=== PATIENT | female | born 1955 | race Hispanic/Latino ===

== ENCOUNTER → 2017-02-09 | Outpatient (CLI) | payer OTHER ==
--- NOTE | 2017-02-10 09:02 | RAD ---
EXAM DESCRIPTION: Chest,2 Views CLINICAL HISTORY: DYSPHAGIA COMPARISON: None TECHNIQUE: PA/lateral FINDINGS: Heart size is upper limits of normal with normal vascularity and tortuous aortic arch and descending aorta. The left lung is essentially clear without infiltrate or effusion. On the right there are slightly coarsened perihilar and infrahilar markings in the medial lung field. Element of scarring or bronchitis or atelectasis should be considered. Dense lobar or segmental consolidation or pleural effusion is not apparent. IMPRESSION: Coarse hilar and infrahilar markings right lung suggesting an element of atelectasis or scarring or less likely minimal bronchopneumonia. Otherwise negative chest with upper normal heart size. Electronically signed by: Jesús Crawford MD 02/10/2017 9:00 AM CDT
--- NOTE | 2017-02-13 10:09 | RAD ---
EXAM DESCRIPTION: UGI: Fluoroscopy with barium. CLINICAL HISTORY: DYSPHAGIA COMPARISON: Barium swallow 02/23/2015. TECHNIQUE: The patient swallowed barium pill under fluoroscopy. Patient also swallowed Gas-producing granules, water, and heavy-density barium under fluoroscopic visualization. Patient also drank medium-density barium through a straw, prone position. The images were obtained with the patient upright and horizontal. 12 fluoroscopic images taken. Five cine loops. Permanent images of this procedure are stored in the patient's medical record. Fluoroscopy time was 2.1 minutes. Cumulative dose: 59.14 mGy. FINDINGS: Barium pill passed from the oral cavity into the stomach under fluoroscopy without delay. The swallowing mechanism of the hypopharynx and laryngeal regions is unremarkable. Normal primary peristaltic wave. Minimal to moderate gastroesophageal reflux. No gastroesophageal obstruction. No hiatal hernia. Stomach well distended with gas and contrast material and unremarkable. Duodenum are distended with gas and contrast material and unremarkable. No mass effect. IMPRESSION: 1. Moderate gastroesophageal reflux without hiatal hernia. No mucosal lesions in the esophagus or mass effect. 2. No intrinsic lesions in the stomach or duodenum. No mass effect. If dysphagia symptoms persist, consider modified barium swallow examination with speech-language pathology supervision. Electronically signed by: Rogelio Aguirre MD 02/13/2017 10:07 AM CDT
== END | disposition home or self-care (01) ==
LOC: RAD 08:26
PROVIDERS: ATTEND Otolaryngology
DX: R13.10 Dysphagia, unspecified (principal)

== ENCOUNTER → 2018-02-13 | Outpatient (CLI) | payer OTHER ==
--- NOTE | 2018-02-15 11:10 | MAM ---
EXAM DESCRIPTION: 3D Screening BILATERAL : Digital Mammography. CLINICAL HISTORY: 62 years Female SCREENING . No complaints or personal history of breast cancer. Sister with breast cancer. No childbirth. Hysterectomy 15 years ago. No HRT. Lifetime risk of developing breast cancer (Tyrer-Cuzick model)(%): 3.4. COMPARISON: Baseline study at this facility.. No prior reports available. TECHNIQUE: Bilateral CC and MLO projection full-field images, Digital tomosynthesis mammographic technique. Bilateral digital 2-D full-field MLO images. CAD not utilized. FINDINGS: The breast parenchymal density pattern is: Heterogeneously dense breast tissue, which may obscure small masses. No skin thickening or nipple retraction. Bilateral vascular calcifications, more on the right. Left axillary lymph nodes. Bilateral solitary microcalcifications. No focal, stellate mass or density, focal asymmetry , and no suspicious microcalcifications bilaterally. IMPRESSION: Benign exam. BIRAD CATEGORY: 2 BENIGN FINDINGS. RECOMMENDATIONS: FOLLOW UP: Routine digital bilateral screening, one year interval from January 2018. Written communication explaining the IMPRESSION and follow-up, will be mailed to the patient and referring health care provider. According to the [employer], yearly mammograms are recommended starting at age 40 and continuing as long as a woman is in good health. Any breast change noted on a breast self-exam should be reported promptly to the patient's healthcare provider. Breast MRI is recommended for women with an approximately 20-25% or greater lifetime risk of breast cancer, including women with a strong family history of breast or ovarian cancer and women who have been treated for Hodgkin's disease. A negative mammographic report should not delay tissue diagnosis in patients with significant clinical history or physical findings. Extremely dense breast tissue limits the sensitivity of digital mammography. Electronically signed by: Rogelio Aguirre MD 02/15/2018 11:09 AM CDT
== END ==
LOC: MAMMO 15:00
PROVIDERS: ATTEND General Practice
DX: Z12.31 Encounter for screening mammogram for malignant neoplasm of breast (principal)

== ENCOUNTER → 2018-07-18 | Outpatient (CLI) | payer OTHER ==
--- NOTE | 2018-07-18 17:26 | US ---
EXAM DESCRIPTION: Soft Tissue,Extremity: ULTRASOUND. CLINICAL HISTORY: 63 years Female NEOPLASM OF UNSPECIFIED NATURE OF BONE, SOFT TISSUE AND SKIN pliable soft tissue mass posterior left elbow and distal left forearm. Patient states fluid has been there for one year. COMPARISON: None Available. TECHNIQUE: Transcutaneous scanning: Giang-scale and Doppler modes. FINDINGS: Mostly homogeneous hypoechoic fluid posterior to the dermal layer and anterior to the muscle layer. Not vascular. Posterior acoustic enhancement. Echogenicity and shadowing noted in the distal posterior left ulna. IMPRESSION: Slightly hypoechoic fluid collection underneath the skin and anterior to the muscle layer left elbow and left olecranon. Not vascular. Echogenicity may be related to age of the fluid. Electronically signed by: Rogelio Aguirre MD 07/18/2018 5:23 PM CDT
== END ==
LOC: US 16:20
PROVIDERS: ATTEND Family Medicine
DX: D49.2 Neoplasm of unspecified behavior of bone, soft tissue, and skin (principal); R60.0 Localized edema

== ENCOUNTER 2019-07-08 14:26 | Inpatient (IN) | payer OTHER ==
[2019-07-08] MEDS ORDERED: SODIUM CHLORIDE 0.9% 1000ML 1,000 ML IVS ONE (14:29)
--- NOTE | 2019-07-08 14:57 | RAD ---
EXAM DESCRIPTION: Abdomen Series CLINICAL HISTORY: nausea, uti, fever COMPARISON: 02/10/2020. TECHNIQUE: Upright portable frontal views of the chest and abdomen were obtained. FINDINGS: The lungs are hypoventilated, but are otherwise clear without focal consolidation, pleural effusion, or significant pneumothorax. The heart is normal in size. The bowel gas pattern is normal without evidence of obstruction. No free subdiaphragmatic air. Scattered soft tissue calcifications. No acute osseous abnormality. IMPRESSION: 1. No acute cardiopulmonary process. 2. Nonobstructive bowel gas pattern. Electronically signed by: Alec Contreras DO 07/08/2019 2:56 PM CDT
[2019-07-08] MEDS ORDERED: IBUPROFEN 200 MG TAB PO ONE (15:12)
[2019-07-08] MEDS ORDERED: cefTRIAXone SODIUM 1 GM in SODIUM CHL 0.9% 50ML MIN-BAG+ 50 ML IVPB ONE (15:12)
[2019-07-08] MEDS ORDERED: IBUPROFEN 200 MG TAB ONE (15:12)
[2019-07-08] MEDS ORDERED: cefTRIAXone SODIUM 1 GM VIAL ONE (15:13)
[2019-07-08] MEDS ORDERED: SODIUM CHL 0.9% 50ML MIN-BAG+ 50 ML IVPB ONE (15:14)
--- NOTE | 2019-07-08 16:57 | CT ---
EXAM DESCRIPTION: Abdomen/Pelvis w/Contrast CLINICAL HISTORY: 64 years Female fever, luq pain, uti COMPARISON: None TECHNIQUE: Images were obtained in axial, sagittal, and coronal planes. Intravenous contrast was administered. This exam was performed according to our departmental dose-optimization program which includes use of Automated Exposure Control, adjustment of the mA and/or kV according to patient size and/or use of iterative reconstruction technique. FINDINGS: No obstructing renal calcifications bilaterally. Punctate nonobstructing calcifications right kidney. Mild right hydronephrosis with associated intimal thickening and enhancement right collecting system. No hydronephrosis on left. Mucosal thickening with enhancement involving the bladder. No abnormality involving the liver, spleen, pancreas, gallbladder, and adrenal glands bilaterally. Appendix not well identified however no secondary signs for appendicitis. No bowel obstruction, perforation, or inflammation. Calcification abdominal aorta with no dilatation seen. No adenopathy or abnormal fluid collections noted. No acute osseous abnormality. Dependent atelectatic change lower lungs bilaterally. Gluteal calcifications bilaterally. Calcification abdominal aorta with no dilatation seen. No adenopathy or abnormal fluid collections seen. IMPRESSION: No obstructing renal calcifications bilaterally. Findings consistent with inflammatory change right collecting system and bladder. Otherwise unremarkable study. Electronically signed by: Peace Martinez MD 07/08/2019 4:55 PM CDT
[2019-07-08] MEDS ORDERED: PIPERACILLIN/TAZOBACTAM 3.375 GM in SODIUM CHLORIDE 0.9% 100ML 100 ML IVPB ONE (17:02)
[2019-07-08] MEDS ORDERED: PIPERACILLIN/TAZOBACTAM 3.375 GM VIAL IVPB ONE ×2 (17:07→22:04)
[2019-07-08] MEDS ORDERED: SODIUM CHLORIDE 0.9% 100ML 100 ML IVPB ONE ×2 (17:07→22:04)
--- NOTE | 2019-07-08 17:29 | ED.PDOC ---
History of Present Illness - General Chief Complaint: General Stated Complaint: uti, decreased intake Time Seen by Provider: 07/08/19 14:28 Source: patient Exam Limitations: no limitations - History of Present Illness Initial Comments: The patient is a 64-year-old female presenting to the emergency room after being sent over from the primary care doctor. The patient was having some mild confusion as well as a fever about 103 and tachycardia in the 120s. She has reported increased urinary frequency and dysuria over the last 4 to 5 days along with increasing back pain. Over the last 24 hours she is also had some epigastric left upper quadrant pain along with nausea and some episodes of vomiting. No blood and no bile. The patient is obviously very weak. She does appear fairly dehydrated. The patient is immunocompromise secondary to immunosuppressant medications for her rheumatoid and lupus. Timing/Duration: other - 5 days Severity: moderate Improving Factors: nothing Worsening Factors: nothing Associated Symptoms: diaphoresis, fever/chills, loss of appetite, malaise, nausea/vomiting, weakness Allergies/Adverse Reactions: Allergies Nifedipine [From Procardia] Allergy (Verified 07/08/19 14:43) Sulfa Antibiotics Allergy (Verified 07/08/19 14:43) Home Medications: Ambulatory Orders Alendronate Sodium 70 mg PO WKLY 07/08/19 Gabapentin 300 mg PO BEDTIME 07/08/19 Hydroxychloroquine Sulfate [Plaquenil] 200 mg PO BEDTIME 07/08/19 Lisinopril 40 mg PO DAILY 07/08/19 Prednisone 5 mg PO DAILY 07/08/19 Review of Systems - Review of Systems Constitutional: States: fever, malaise, weakness EENTM: States: no symptoms reported Respiratory: States: no symptoms reported Cardiology: States: no symptoms reported Gastrointestinal/Abdominal: States: abdominal pain, nausea, vomiting Genitourinary: States: no symptoms reported Musculoskeletal: States: back pain - Right-sided mainly Skin: States: no symptoms reported Neurological: States: see HPI - Confusion Endocrine: States: excessive sweating All other Systems: No Change from Baseline Past Medical History (General) - Patient Medical History Hx Seizures: No Hx Asthma: No Hx Cardiac Disorders: No Hx Congestive Heart Failure: No Hx Diabetes: - pt states diagnosis has been retracted. Hx MRSA: Yes - Leg 2007 MRSA Source:: Wound Family Medical History - Family History Mother Family History: No Known Physical Exam - Physical Exam General Appearance: Alert, Ill Appearing, Restless Eye Exam: bilateral normal Ears, Nose, Throat: hearing grossly normal, normal ENT inspection Neck: full range of motion, supple Respiratory: lungs clear, normal breath sounds, no respiratory distress, no accessory muscle use Cardiovascular/Chest: normal peripheral pulses, no edema, tachycardia Peripheral Pulses: radial,right: 2+, radial,left: 2+ Gastrointestinal/Abdominal: soft, other - Epigastric to left upper quadrant discomfort to palpation. No true rebound or peritoneal signs. Rectal Exam: deferred Back Exam: no vertebral tenderness, CVA tenderness (R) Extremity: normal range of motion, non-tender, normal inspection, no pedal edema, normal capillary refill Neurologic: manager fashion II-XII nml as tested, alert, other - The patient is mildly disoriented. This does resolve with improvement in her fever. Skin Exam: diaphoresis Comments: Vital Signs - 24 hr 07/08/19 07/08/19 07/08/19 14:30 15:05 16:00 Temperature 102.9 F H 102.2 F H Pulse Rate [ 91 H 114 H 81 left brachial] Respiratory 20 18 18 Rate Blood Pressure 125/81 128/76 123/60 [left brachial] O2 Sat by Pulse 99 100 99 Oximetry Progress - Progress Progress: 07/08/19 17:30 The patient is a 64-year-old female presenting to the emergency room with mild delirium related to what appears to be pyelonephritis on the right and gastritis that is likely related to that. The patient was moderately dehydrated. She has received a liter of IV fluids so far. She did initially receive a dose of Rocephin for suspected sepsis. We have since added on Zosyn to broaden the spectrum for the pyelonephritis. The patient will also need to have her nausea and vomiting managed. I do suspect that she has significant gastritis and will need acid reducing medications for the next week or so anyway. Mental status has improved with improvement of fever and rehydration. Anticipate a 3 to 5-day hospital stay for treatment of the significantly symptomatic pyelonephritis. The patient again is immunocompromise secondary to medications for treatment of her lupus and rheumatoid. Blood and urine cultures have of course been performed. The patient will be need to be monitored closely for the development of sepsis. 07/08/19 17:32 - Results/Orders Results/Orders: CT of the abdomen and pelvis shows mild inflammation of the right urinary collecting system. See report for details. Laboratory Tests 07/08/19 07/08/19 07/08/19 15:10 15:10 15:10 WBC 11.6 H RBC 4.43 Hgb 13.4 Hct 39.2 MCV 88.6 MCH 30.2 MCHC 34.1 RDW 15.1 H Plt Count 103 L MPV 8.3 Absolute Neuts (auto) 9.40 H Absolute Lymphs (auto) 1.10 Absolute Monos (auto) 1.00 H Absolute Eos (auto) 0.00 Absolute Basos (auto) 0.10 Neutrophils % 81.7 H Lymphocytes % 9.2 L Monocytes % 8.4 Eosinophils % 0.1 L Basophils % 0.6 Sodium Potassium Chloride Carbon Dioxide Anion Gap BUN Creatinine BUN/Creatinine Ratio Random Glucose Serum Osmolality Lactic Acid 2.0 Calcium Magnesium Total Bilirubin AST ALT Alkaline Phosphatase Serum Total Protein Albumin Globulin Albumin/Globulin Ratio Amylase 41 Lipase 07/08/19 15:12 WBC RBC Hgb Hct MCV MCH MCHC RDW Plt Count MPV Absolute Neuts (auto) Absolute Lymphs (auto) Absolute Monos (auto) Absolute Eos (auto) Absolute Basos (auto) Neutrophils % Lymphocytes % Monocytes % Eosinophils % Basophils % Sodium 134 L Potassium 3.3 L Chloride 101 Carbon Dioxide 23 Anion Gap 13.3 BUN 15 Creatinine 0.92 BUN/Creatinine Ratio 16.3 Random Glucose 136 H Serum Osmolality 271.2 L Lactic Acid Calcium 8.5 Magnesium 1.8 Total Bilirubin 1.1 H AST 34 ALT 35 Alkaline Phosphatase 61 Serum Total Protein 8.3 H Albumin 3.3 Globulin 5.0 H Albumin/Globulin Ratio 0.7 L Amylase Lipase 23 Departure - Departure Clinical Impression: Pyelonephritis, Delirium Acute gastritis Qualifiers: Gastritis type: unspecified gastritis Gastritis bleeding: without bleeding Qualified Code(s): K29.00 - Acute gastritis without bleeding Disposition: Admit Patient Departure Forms: ED Discharge - Pt. Copy, Patient Portal Self Enrollment Referrals: MELISSA FRY MD [Primary Care Provider] - 1-2 Weeks Home Medications: Ambulatory Orders Alendronate Sodium 70 mg PO WKLY 07/08/19 Gabapentin 300 mg PO BEDTIME 07/08/19 Hydroxychloroquine Sulfate [Plaquenil] 200 mg PO BEDTIME 07/08/19 Lisinopril 40 mg PO DAILY 07/08/19 Prednisone 5 mg PO DAILY 07/08/19 Decision To Admit - Decistion To Admit Decision to Admit Reason: Medical Nature Decision to Admit Date: 07/08/19 Decision to Admit Time: 17:33
--- NOTE | 2019-07-08 17:57 | HP ---
SUPERVISING PHYSICIAN: Vitaliy Gustafson MD CHIEF COMPLAINT: Urinary tract infection with nausea and vomiting. HISTORY OF PRESENT ILLNESS: Ms. Adan is a 64-year-old female patient who has a history of rheumatoid arthritis and Lupus for which she is on multiple immunosuppressant medications. She was seen by Dr. Berry, her primary care physician, today for some increasing urinary frequency, dysuria that has been occurring over the last five days along with increasing back pain and some left upper epigastric discomfort. She has also noted some vomiting associated with nausea. In the clinic, she was noted to have a fever of 103 and was tachycardic at one point. In the ER, she was again tachycardic at 114 with a temperature of 102.9. Blood pressure was stable at 128/76. Saturation 100% on room air at rest. Labs did show a leukocytosis with a left shift, however, she is on immune compromising medications due to her rheumatoid arthritis and lupus. Chemistries showed a mild hyponatremia with a hypokalemia with potassium 3.3. Liver functions showed just a very slightly elevated bilirubin. Amylase and lipase are both normal as well as AST, ALT. Lactic acid currently is at 2.0. Urinalysis from the clinic showed 3+ blood with protein at 3+ and positive nitrites. Microscopic revealed 2+ bacteria with just a few epithelials, 10 to 20 RBCs, 20 to 30 WBCs. Urine culture was requested and due to her initial presentation with concerns for sepsis, blood cultures were drawn and she was started on fluid resuscitation as well as initiation of antibiotic therapy to include Rocephin. Since then, she has had increase in empiric coverage for broader coverage with Zosyn for concerns for sepsis and developing pyelonephritis. A CT of her abdomen and pelvis with contrast per radiologic interpretation showed nonobstructing renal calcifications bilaterally and findings consistent with inflammatory changes of the right collecting system and bladder. The patient does endorse that she has been having bilateral pain to her flank area, but more so on the left today as well as the epigastric region. Given the findings on CT concerning for pyelonephritis, the fact that she is tachycardic with a mild leukocytosis even on immunosuppressant medications and showing a temperature of 102.9 with significant infection due to urinary tract infection, she is going to be admitted for continuation of treatment as well as surgical consultation for the left upper epigastric discomfort and pain. She was admitted in stable condition. PAST MEDICAL HISTORY: 1. Type 2 diabetes mellitus diagnosed in 2014. 2. Hypertension diagnosed in 2000. 3. Lupus diagnosed in 2014. 4. History of shingles times 2 episodes. PAST SURGICAL HISTORY: No surgeries listed. HOME MEDICATIONS: 1. Gabapentin 300 mg at bedtime. 2. Plaquenil 200 mg at bedtime. 3. Alendronate sodium 70 mg weekly. 4. Prednisone 5 mg daily. 5. Lisinopril 40 mg daily. ALLERGIES: NIFEDIPINE AND SULFA ANTIBIOTICS. FAMILY HISTORY: Noncontributory. 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 She is and lives in [place]. She does not drink alcohol and has never smoked. She does not use illicit drugs. REVIEW OF SYSTEMS: CONSTITUTIONAL: Positive for general malaise, fever and weakness. HEENT: Negative for headaches, sore throats, nasal congestion, vision changes. RESPIRATORY: Denies shortness of breath, coughing, wheezing. CARDIOVASCULAR: Negative for chest pain, palpitations or syncopal episodes. GASTROINTESTINAL: Left upper quadrant pain with some nausea and vomiting. GENITOURINARY: Reported dysuria. Negative for hematuria or polyuria. MUSCULOSKELETAL: Right sided CVA tenderness with chronic changes from arthritis, Lupus. SKIN: No reported lesions, rashes, moles or unexplained changes. NEUROLOGIC: Some mild confusion associated with fever. No ataxia, no seizure activity. No other focal deficits. HEMATOLOGICAL: Denies any easy bruising, unexplained bleeding or transfusion reaction. PHYSICAL EXAMINATION: VITAL SIGNS: Temperature initially 102.9. Heart rate 114. Blood pressure 128/76. Respirations 18. Saturation 100% on room air. After Tylenol in the ER, temperature was going down prior to admission to 100.7. Blood pressure 101/61, heart rate 81. Admission weight 55 kg. GENERAL: The patient is resting comfortably, does not appear to be in any acute distress. She does look a little dehydrated and ill appearing. HEENT: Tympanic membranes clear bilaterally. Oropharynx is pink. Dry mucous membranes. No lesions. NECK: Supple, nontender with full range of motion. No jugular venous distention noted. RESPIRATORY: Lungs clear to auscultation bilaterally without any rhonchi, wheezes or rales. CARDIOVASCULAR: Regular rate and rhythm without any appreciable murmurs, gallops, or rubs. Tachycardia noted on bedside monocytes. ABDOMEN: Soft. Discomfort on palpation to the left upper quadrant. No rebound or peritoneal signs. No guarding. BACK: Positive for CVA tenderness on the right side. No vertebral tenderness noted. EXTREMITIES: Moving all extremities ad nataliia. There is no cyanosis, clubbing or edema. NEUROLOGIC: The patient is alert and oriented times three on my exam, but reportedly had some mild disorientation with a fever on initial exam. Cranial nerves II-XII are grossly intact. Facial features are symmetrical. There is no nystagmus noted. SKIN: Warm, pink and dry. LABORATORY: White count 11,600, hemoglobin 13.4, hematocrit 39.2, platelet count 110,000. Differential does show a left shift. Chemistries show sodium 134, potassium 3.3, otherwise electrolytes within normal limits. Creatinine 0.92, glucose 136, serum lactic acid 2.0, magnesium 1.8, calcium 8.5, total bilirubin slightly elevated at 1.1. Otherwise, ALT, AST normal as well as amylase and lipase. Urinalysis in the clinic did show significant pyuria and bacteruria with 2+ bacteria, 10 to 20 RBCs, 20 to 30 WBCs on microscopic with positive nitrites and leukocyte esterase. MICROBIOLOGY: Urine culture pending. Blood culture pending. Flu swab for A and B by PCR was negative. She has no significant history for COVID-19. RADIOLOGY: Initial abdominal x-ray per radiologic interpretation showed no acute cardiopulmonary process, nonobstructing bowel gas pattern. This was followed with a CT of the abdomen and pelvis with contrast and per radiologic interpretation showed nonobstructing renal calcifications bilaterally with findings consistent with inflammatory changes of the right collecting system and bladder. Otherwise, unremarkable study. ASSESSMENT: 1. Urinary tract infection with developing pyelonephritis as noted consistent with changes on CT with cultures pending. 2. Sepsis with the patient tachycardic, febrile and mild leukocyte esterase and slight immunocompromised state due to immunocompromising drugs for rheumatoid arthritis and lupus. 3. History of lupus and rheumatoid arthritis on multiple immunocompromising medications. 4. Left upper quadrant pain, possibly due to gastritis and recent acute illness with some nausea and vomiting with surgical consultation with Dr. Zazueta pending with normal amylase and lipase. 5. Diabetes mellitus, type 2, on diet therapy. 6. Hypertension. PLAN: The patient is going to be admitted for initiation of parenteral antibiotics for treatment of sepsis secondary to urinary tract infection and developing pyelonephritis in an immunocompromised patient with a history of lupus and rheumatoid arthritis on multiple immunocompromising medications. We will go ahead and cover broadly with empiric coverage to include Zosyn. We will await Dr. Zazueta's consultation. If needed, we will provide additional coverage for any abdominal infection, but at this point she seems to be low risk. She will be on Zofran and Phenergan as needed for nausea and vomiting. We will give her morphine as needed for pain control. She will be on DVT prophylaxis per protocol. We will have her on a sliding scale insulin per protocol. She will be on an 1800 ADA calorie diet. I anticipate her length of stay to be at least two to three days. We will await culture results to further target antibiotic therapy as appropriate to care. I would not be surprised if she has a gram negative bacteremia, but we will await those culture results and treat with Zosyn until we have other results. I will make sure culture was sent over from the clinic of her urine. We will plan to repeat labs in the morning. Until she can be transitioned to oral antibiotics and outpatient management, we will continue to monitor and treat as needed. #[id number] MTDD
--- NOTE | 2019-07-08 19:56 | CONS ---
DATE OF CONSULTATION: 07/08/19 REASON FOR CONSULTATION: Abdominal pain. HISTORY OF PRESENT ILLNESS: This is a 64-year-old woman who presented with abdominal pain, fever and some nausea this morning. The pain has been for three days. She states her pain is better now, but this morning it was bilateral and then just on the left side as the right went away. Now, it is much better. She had some nausea this morning on an empty stomach taking Tylenol and she felt it was attributable to the Tylenol. She has had no diarrhea. She has had a history of similar symptoms in the past, but no known cause. She has had urine infections in the past. She has had subjective fever and 103 here in the Emergency Room. No diaphoresis. PAST MEDICAL HISTORY: No significant medical illness. PAST SURGICAL HISTORY: C-sections. MEDICATIONS: 1. Alendronate. 2. Gabapentin. ALLERGIES: NIFEDIPINE, SULFA, UNKNOWN REACTION. FAMILY HISTORY: None significant. SOCIAL HISTORY: The patient denies any illicit habits. REVIEW OF SYSTEMS: CONSTITUTIONAL: She has subjective fever. No diaphoresis, no chills. HEENT: No headache, visual changes, sore throat. RESPIRATORY: No cough or wheeze. CARDIOVASCULAR: No chest pain or palpitations. GASTROINTESTINAL: As above. GENITOURINARY: She did have some dysuria two days ago. SKIN: No reported lesions, rashes, etc. NEUROLOGIC: Normal. PHYSICAL EXAMINATION: VITAL SIGNS: T-max here was 102.9. Heart rate 114, now it is 82. Blood pressure right now 90s/40s, comfortable. Saturation 97% on room air. GENERAL: The patient is lying in the bed on the phone. No distress. She is conscious, awake, alert and oriented times 3. HEENT: Normocephalic, atraumatic. Pupils equal and reactive. Extraocular muscles are intact. Sclerae anicteric. Oral mucosa is moist. NECK: Supple. No masses. Trachea midline. No thyromegaly. No lymphadenopathy. CHEST: Clear and equal bilaterally. No wheezing or crackles. HEART: Regular rate and rhythm. No murmurs, rubs or gallops. ABDOMEN: Moderately obese. It is soft. There is slight tenderness over the left costal area, but no abdominal tenderness, no rebound, no guarding, no CVA tenderness at this time. EXTREMITIES: No cyanosis, clubbing or edema. LABORATORY: White blood cell count 11, hematocrit 29, platelet count 103. CMP: Random glucose 126. Otherwise relatively normal. Potassium 3.3. Lipase 23. Urinalysis: I do not see at this time. If that is not ordered, it will be. RADIOLOGY: CT scan was done. I also reviewed it myself. There is evidence of perinephric stranding bilaterally, more on the left. The right ureter does not show any obstructing calculi, but there is moderate hydroureter with prominent wall. Otherwise no evidence of perforation, free air, enteritis, diverticulitis, etc. IMPRESSION/RECOMMENDATION Abdominal pain, essentially resolved. I do not see any surgical indication at this time. Likely a pyelonephritis given her symptoms and the CT findings. Urinalysis should be ordered and completed. The patient does have a temperature and presented with tachycardia with slight leukocytosis, so it will be up to the medical doctors whether she should be admitted to pyelonephrosis and possible early sepsis for IV antibiotics. #[id number] [facility]
[2019-07-08] MEDS ORDERED: ONDANSETRON INJ 4 MG/2 ML VIAL IV PRN (21:29)
[2019-07-08] MEDS ORDERED: DEXTROSE 50% 25 GM/50 ML SYG IV PRN (21:29)
[2019-07-08] MEDS ORDERED: SODIUM CHLORIDE 0.9% (FLUSH) 10 ML SYG IV PRN (21:29)
[2019-07-08] MEDS ORDERED: MAGNESIUM HYDROXIDE 30 ML UD PO PRN (21:29)
[2019-07-08] MEDS ORDERED: GLUCAGON INJ 1 MG VIAL SUBCU PRN (21:29)
[2019-07-08] MEDS ORDERED: ALUM & MAG HYDROX-SIMETHICONE 30 ML UD PO PRN (21:29)
[2019-07-08] MEDS: MORPHINE SULFATE INJ 10 MG/ML VIAL IV PRN (21:45)
[2019-07-08] MEDS: KCL 20 MEQ/NS 1,000 ML IVS PRN (21:48)
[2019-07-08] MEDS: PIPERACILLIN/TAZOBACTAM 3.375 GM in SODIUM CHLORIDE 0.9% 100ML 100 ML IVPB SCH (22:07)
[2019-07-08] MEDS: IV SET AND CAP CHANGE INJ INJ SCH (22:08)
[2019-07-09] MEDS: ACETAMINOPHEN 325 MG TAB PO PRN ×2 (00:34→20:21)
[2019-07-09] MEDS ORDERED: PIPERACILLIN/TAZOBACTAM 3.375 GM VIAL IVPB ONE (05:05)
[2019-07-09] MEDS ORDERED: SODIUM CHLORIDE 0.9% 100ML 100 ML IVPB ONE ×3 (05:07→19:55)
[2019-07-09] MEDS: PIPERACILLIN/TAZOBACTAM 3.375 GM in SODIUM CHLORIDE 0.9% 100ML 100 ML IVPB SCH (05:27)
[2019-07-09] MEDS: OMEPRAZOLE CAP 20 MG CAP PO SCH (05:28)
[2019-07-09] MEDS: INSULIN LISPRO 100 UNITS/ML PEN SUBCU SCH ×4 (07:07→21:27)
[2019-07-09] MEDS ORDERED: LISINOPRIL 10 MG TAB ONE (07:20)
[2019-07-09] MEDS: predniSONE 5 MG TAB PO SCH (08:46)
[2019-07-09] MEDS ORDERED: NON-FORMULARY MEDICATION 1 EA MIS (Lisinopril [Lisinopril] 40 MG) PO SCH (09:00)
[2019-07-09] MEDS: MORPHINE SULFATE INJ 10 MG/ML VIAL IV PRN (12:29)
[2019-07-09] MEDS ORDERED: PIPERACILLIN/TAZOBACTAM 2.25 GM VIAL IVPB ONE ×2 (13:16→19:55)
--- NOTE | 2019-07-09 13:16 | PN ---
SUPERVISING PHYSICIAN: Vitaliy Gustafson MD DATE: 07/09/19 SUBJECTIVE: The patient still runs a fever. T-max last night was 100.7. She is remaining hemodynamically stable. She reports she is having a little nausea and still having some left sided pain more on the lateral aspect into her flank area. She has had no diarrhea. OBJECTIVE: VITAL SIGNS: T-max 100.7. Pulse 116. Blood pressure 98/65. Respirations 20. Saturation 97% on room air. GENERAL: The patient is resting comfortably and does not appear in any acute distress. CHEST: Lungs are clear to auscultation bilaterally. HEART: Regular rate and rhythm. ABDOMEN: Soft with continued tenderness in the left upper quadrant on palpation, but no rebound tenderness, no guarding, no peritoneal signs. She still has some left sided CVA tenderness, no right sided tenderness noted. EXTREMITIES: No edema. NEUROLOGIC: Alert and oriented times three. LABORATORY: White count has gone up today to 12,900 with hemoglobin 11.1, hematocrit 32.7, platelet count 86,000. Differential does show a left shift. Chemistries show sodium 134, potassium now normalized to 3.6. Carbon dioxide is a little low at 20, but anion gap is normal at 17 with creatinine 1.22. Glucoses 79 and 136. Calcium 7.1. MICROBIOLOGY: Urine culture is still pending. Blood cultures are showing gram negative bacilli. RADIOLOGY: No additional studies. ASSESSMENT: 1. Complicated urinary tract infection with left sided pyelonephritis with cultures pending. 2. Sepsis secondary to #1 in an immunocompromised patient with a history of rheumatoid arthritis and lupus on immunocompromising medications. 3. Gram negative bacteremia, source likely underlying urinary tract infection and pyelonephritis with cultures pending with the patient on parenteral antibiotics to include Zosyn. 4. Chronic lupus and rheumatoid arthritis on immunocompromising medications. 5. Left upper quadrant abdominal pain, questionable gastritis with the patient's abdominal pain being followed by Dr. Zazueta. 6. Diabetes mellitus, type 2, on sliding scale insulin protocol, stable. 7. Hypertension, stable. PLAN: Given that she does have a gram negative bacteremia with underlying pyelonephritis, we will continue with Zosyn, but will increase the dose to 4.5 given that she is immunocompromised based on her history and medications. We will continue with fluids, pain management and antiemetics as needed. We may re-image if she continues to have a significant amount of pain within the next 24 to 48 hours. We will await final culture results and target antibiotic therapy as appropriate. We will need to hold off on her Lovenox today given her thrombocytopenia which is probably related to her underlying chronic rheumatoid arthritis and lupus. I would anticipate at least another 48 to 72 hours of hospitalization until we can finally get cultures back and target antibiotic therapy and get her transitioned to oral medication. Until the patient can transition to outpatient management, we will continue to monitor and treat as needed. [id number] [facility]
[2019-07-09] MEDS: PIPERACILLIN/TAZOBACTAM 4.5 GM in SODIUM CHLORIDE 0.9% 100ML 100 ML IVPB SCH ×2 (13:27→20:00)
[2019-07-09] MEDS: NON-FORMULARY MEDICATION 1 EA MIS (Hydroxychloroquine Sulfate [Plaquenil] 200 MG) PO SCH (21:26)
[2019-07-10] MEDS ORDERED: PIPERACILLIN/TAZOBACTAM 2.25 GM VIAL IVPB ONE ×4 (01:32→19:10)
[2019-07-10] MEDS ORDERED: SODIUM CHLORIDE 0.9% 100ML 100 ML IVPB ONE ×4 (01:32→19:10)
[2019-07-10] MEDS: PIPERACILLIN/TAZOBACTAM 4.5 GM in SODIUM CHLORIDE 0.9% 100ML 100 ML IVPB SCH ×6 (01:57→21:37)
[2019-07-10] MEDS: ACETAMINOPHEN 325 MG TAB PO PRN ×3 (04:58→22:11)
[2019-07-10] MEDS: KCL 20 MEQ/NS 1,000 ML IVS PRN (05:58)
[2019-07-10] MEDS: OMEPRAZOLE CAP 20 MG CAP PO SCH (06:00)
[2019-07-10] MEDS: INSULIN LISPRO 100 UNITS/ML PEN SUBCU SCH ×4 (07:42→20:56)
[2019-07-10] MEDS: predniSONE 5 MG TAB PO SCH (08:59)
[2019-07-10] MEDS ORDERED: LISINOPRIL 10 MG TAB PO SCH (09:00)
--- NOTE | 2019-07-10 15:10 | PN ---
SUPERVISING PHYSICIAN: Vitaliy Gustafson MD DATE: 07/10/19 SUBJECTIVE: The patient fees like she is doing better. The pain in her left side is essentially gone. She has had no nausea or vomiting. T-max temperature in the last 24 hours has been at 100.7, although she has not really run a fever since midnight on the 07/08. Temperature today on exam was 97.9. OBJECTIVE: CHEST: Lung sounds are clear to auscultation. HEART: Regular rate and rhythm. ABDOMEN: Soft, non-tender, without any notable tenderness on palpation. No rebound tenderness, no CVA tenderness throughout right or left. EXTREMITIES: No edema. NEUROLOGIC: Alert and oriented times three. LABORATORY: White count has now normalized at 9,000, hemoglobin 11.6, hematocrit 34.0, platelet count shows decreasing at 70,000 with differential showing a left shift. Chemistries show just a very mild low potassium at 3.5 with a BUN of 13, creatinine 0.87. Blood sugars range between 82 and 99, calcium 7.5. MICROBIOLOGY: Urine culture is still pending. Blood cultures again show gram negative arturo which is still pending final results. . RADIOLOGY: No additional studies today. ASSESSMENT: 1. Complicated urinary tract infection with bilateral pyelonephritis more noticeable on CT on the left than the right with patient being symptomatic but now showing good improvement with antibiotics. 2. Sepsis secondary to #1 in an immunocompromised patient with a history of rheumatoid arthritis and lupus on immunocompromising medications. 3. Gram negative bacteremia, source likely underlying urinary tract infection and pyelonephritis with cultures pending with the patient on parenteral antibiotics to include Zosyn. 4. Chronic lupus and rheumatoid arthritis on immunocompromising medications. 5. Left upper quadrant abdominal pain on admission with questionable gastritis with the patient now being asymptomatic and currently being followed by Dr. Zazueta. 6. Diabetes mellitus, type 2, on sliding scale insulin protocol, stable. 7. Hypertension, stable. PLAN: Will await culture results of the blood cultures and keep her on antibiotic coverage which at this point is Zosyn 4.5 grams on extended infusion. We will go ahead and continue with fluids, pain management as needed. We will anticipate saline-locking her starting tomorrow and if we need to we will re- image but will need at least to get a PICC line in because I anticipate she will need to be on long-term therapy for antibiotics given the gram negative arturo in her blood cultures. Hopefully, those will be back within the next 24 to 48 hours and we transition her to outpatient management. Again, she is still at high risk due to her rheumatoid arthritis and weakness and her immunosuppressive medications. Until we can transition her to outpatient management, we will continue to monitor and treat as needed. [facility][id number] [facility]
[2019-07-10] MEDS ORDERED: PIPERACILLIN/TAZOBACTAM 3.375 GM in SODIUM CHLORIDE 0.9% 100ML 100 ML IVPB SCH (16:00)
[2019-07-10] MEDS: NON-FORMULARY MEDICATION 1 EA MIS (Hydroxychloroquine Sulfate [Plaquenil] 200 MG) PO SCH (20:39)
[2019-07-11] MEDS ORDERED: SODIUM CHLORIDE 0.9% 100ML 100 ML IVPB ONE ×4 (03:31→19:36)
[2019-07-11] MEDS ORDERED: PIPERACILLIN/TAZOBACTAM 2.25 GM VIAL IVPB ONE ×4 (03:31→19:36)
[2019-07-11] MEDS: PIPERACILLIN/TAZOBACTAM 4.5 GM in SODIUM CHLORIDE 0.9% 100ML 100 ML IVPB SCH ×4 (03:42→21:33)
[2019-07-11] MEDS: OMEPRAZOLE CAP 20 MG CAP PO SCH (05:58)
[2019-07-11] MEDS: INSULIN LISPRO 100 UNITS/ML PEN SUBCU SCH ×4 (08:01→21:06)
[2019-07-11] MEDS: predniSONE 5 MG TAB PO SCH (09:36)
[2019-07-11] MEDS ORDERED: SODIUM CHLORIDE 0.9% (FLUSH) 10 ML SYG IV ONE (18:01)
--- NOTE | 2019-07-11 18:24 | PN ---
SUPERVISING PHYSICIAN: Vitaliy Gustafson MD DATE: 07/11/19 SUBJECTIVE: The patient is doing well today. She has not had any more fevers, now with T-max being 98.5. She has had no nausea or vomiting. She says her abdominal pain is essentially gone. She is concerned that she is urinating a lot and we discussed we are going to saline lock her as she has adequate fluid at this point. OBJECTIVE: VITAL SIGNS: T-max 98.5. Pulse 78. Blood pressure 147/74. Respiratory rate 16. Saturation 95% on room air. GENERAL: The patient is resting comfortably and does not appear to be in any acute distress. She is alert. CHEST: Lung sounds are clear to auscultation. HEART: Regular rate and rhythm. ABDOMEN: Soft, nontender. Positive bowel sounds. No CVA tenderness on the right or left. NEUROLOGIC: Alert and oriented times three. LABORATORY: White count now is normalized to 5,100, hemoglobin 10.5, hematocrit 30.4, differential does show a resolving left shift. Chemistries yesterday were essentially normal, so we are just following her glucoses which ranged between 95 and 127. MICROBIOLOGY: Urine culture final today showed no growth, but this urine sample was actually collected well after the patient was admitted and on antibiotics. I did call the clinic. They did not send did not send the culture over on initial urine culture sample that was completed. Therefore, we do not have a urine culture to deal with, but her blood cultures did show gram negative arturo which I assume probably is the same species, but those culture sensitivities are pending. Flu was negative. No additional blood cultures have come up positive. ASSESSMENT: 1. Complicated urinary tract infection with bilateral pyelonephritis more noticeable on CT on the left than the right with patient being symptomatic but now showing good improvement with antibiotics. 2. Sepsis secondary to #1 in an immunocompromised patient with a history of rheumatoid arthritis and lupus on immunocompromising medications. 3. Gram negative bacteremia, source likely underlying urinary tract infection and pyelonephritis with cultures pending with the patient on parenteral antibiotics to include Zosyn. 4. Chronic lupus and rheumatoid arthritis on immunocompromising medications. 5. Left upper quadrant abdominal pain on admission with questionable gastritis with the patient now being asymptomatic and currently being followed by Dr. Zazueta. 6. Diabetes mellitus, type 2, on sliding scale insulin protocol, stable. 7. Hypertension, stable. PLAN: Will continue antibiotic coverage with Zosyn at 4.5 grams. Hopefully as soon as we get those cultures back we can certainly make a plan on discharging the patient as she is doing well. Her pain in her abdomen is resolved. We might recheck a urine prior to discharge and certainly make sure it is still clean and may do re-imaging since she did have such a severe infection and bacteremia prior to discharge, which the best route would probably be to do an ultrasound and make sure there is no abscess as her clinical picture was a little confusing on admission. We will continue to saline lock her and encourage fluids. Again, hopefully we will be able to discharge as soon as those cultures are back. We will continue to monitor and treat as needed. [id number] [facility]
[2019-07-11] MEDS: NON-FORMULARY MEDICATION 1 EA MIS (Hydroxychloroquine Sulfate [Plaquenil] 200 MG) PO SCH (20:35)
[2019-07-11] MEDS: IV SET AND CAP CHANGE INJ INJ SCH (21:07)
[2019-07-12] MEDS ORDERED: PIPERACILLIN/TAZOBACTAM 2.25 GM VIAL IVPB ONE ×2 (03:55→09:53)
[2019-07-12] MEDS ORDERED: SODIUM CHLORIDE 0.9% 100ML 100 ML IVPB ONE ×2 (03:55→09:53)
[2019-07-12] MEDS: PIPERACILLIN/TAZOBACTAM 4.5 GM in SODIUM CHLORIDE 0.9% 100ML 100 ML IVPB SCH ×2 (03:59→10:02)
[2019-07-12] MEDS: OMEPRAZOLE CAP 20 MG CAP PO SCH (06:36)
[2019-07-12] MEDS: INSULIN LISPRO 100 UNITS/ML PEN SUBCU SCH ×2 (08:11→12:07)
[2019-07-12 09:15] VITALS: O2SAT 98
[2019-07-12] MEDS: predniSONE 5 MG TAB PO SCH (10:02)
--- NOTE | 2019-07-12 11:45 | US ---
EXAM DESCRIPTION: Renal: Ultrasound. CLINICAL HISTORY: 64 years Female Oc pyelo COMPARISON: None TECHNIQUE: Transcutaneous scanning: Two-dimensional and Doppler modes. FINDINGS: Right kidney measures 10.5 x 5.2 x 4.5 cm; mid-renal cortical thickness 12 mm. . Increased echogenicity slightly greater than the liver. No hydronephrosis No echogenic stones. Lobulated contour of the kidney with no perinephric fluid. Normal vascularity. No mass or abscess. Proximal ureter not seen.. Left kidney measures 11.1 x 6.3 x 5.8 cm; mid-renal cortical thickness normal.. Normal echogenicity. No hydronephrosis. No echogenic stones. Minimally lobulated contour of the kidney with no perinephric fluid. Normal vascularity.. No mass or abscess. Proximal ureter not seen. Urinary bladder was visualized. Prevoid volume 74.9 mL. Ureteral jet in the bladder bilateral with color Doppler. Patient not voiding. Abdominal aorta: Normal caliber from the proximal segment to the distal bifurcation. IMPRESSION: 1. Capsule of the right kidney is lobulated with increased echogenicity greater than the liver suggesting a moderate degree of medical renal disease. Minimal medical renal disease in the left kidney. No sonographic evidence of pyelonephritis 2. Minimal distention of the bladder. Patient unable to void. Bilateral ureteral jets seen by Doppler. Normal caliber of the abdominal aorta. Electronically signed by: Rogelio Aguirre MD 07/12/2019 11:44 AM CDT
[2019-07-12 12:04] VITALS: BP 147/87; TEMP 98.2
--- NOTE | 2019-07-12 14:14 | DS ---
SUPERVISING PHYSICIAN: Vitaliy Gustafson MD DISCHARGE DIAGNOSIS: 1. Complicated urinary tract infection with bilateral pyelonephritis more noticeable on CT on the left than the right with patient being symptomatic but now showing good improvement with antibiotics. 2. Sepsis secondary to #1 in an immunocompromised patient with a history of rheumatoid arthritis and lupus on immunocompromising medications. 3. Gram negative bacteremia, source likely underlying urinary tract infection and pyelonephritis. Her blood cultures show Escherichia coli with sensitivity to Augmentin. She has been on Zosyn in the hospital. 4. Chronic lupus and rheumatoid arthritis on immunocompromising medications. 5. Left upper quadrant abdominal pain on admission with questionable gastritis with the patient now being asymptomatic and currently being followed by Dr. Zazueta. 6. Diabetes mellitus, type 2, on sliding scale insulin protocol, stable. 7. Hypertension, stable. HISTORY OF PRESENT ILLNESS: This is a 64-year-old female patient who has a history of rheumatoid arthritis and lupus and is on multiple immunosuppressant medications. She was seen by Dr. Berry, her primary care physician, for some increasing urinary frequency and dysuria that has been occurring over the five days prior to her appointment. She had increasing back pain and some left upper epigastric discomfort. She has also noted some nausea and vomiting. She had a fever of 103 and was tachycardic in the office. She was sent to the Emergency Room and was again tachycardic 114 with a temperature of 102.9. Blood pressure was stable at 128/76. Oxygen saturation 100% on room air. She did have a leukocytosis with a left shift, however, she is on immune compromising medications due to her rheumatoid arthritis and lupus. Chemistries showed a mild hyponatremia with a hypokalemia. Her potassium was 3.3. Liver functions showed just a very slightly elevated bilirubin. Amylase and lipase were both normal as well as AST, ALT. Lactic acid was 2.0. Urinalysis from the clinic showed 3+ blood with protein at 3+ and positive nitrites. Microscopic revealed 2+ bacteria with just a few epithelials, 10 to 20 RBCs, 20 to 30 WBCs. Urine culture was requested as well as blood cultures. She was started on fluid resuscitation as well as initiation of antibiotic therapy to include Rocephin. She was changed to Zosyn for broader coverage with concerns for sepsis and developing pyelonephritis. A CT of her abdomen and pelvis with contrast per radiologic interpretation showed nonobstructing renal calcifications bilaterally and findings consistent with inflammatory changes of the right collecting system and bladder. The patient did endorse that she had underlying bilateral flank pain, but worse on the left as well as the left upper abdomen and epigastric region. She was admitted to the hospital for continuation of treatment as well as consultation with general surgery for the left upper epigastric discomfort and pain. She was admitted in stable condition. HOSPITAL COURSE: The patient was admitted to the hospital and continued on her Zosyn for treatment of sepsis with concerns for developing pyelonephritis in an immunocompromised patient with a history of lupus and rheumatoid arthritis. Dr. Zazueta was consulted due to her left upper epigastric abdominal pain. She was on DVT prophylaxis as well as sliding scale insulin protocol. Cultures were monitored to guide antibiotic therapy. She ran a fever over the first 24 to 36 hours, but her nausea and vomiting subsided. Her initial blood cultures came back for gram negative bacteremia. Her pain subsided for the most part. Her home medications were continued. The patient continued treatment until blood culture sensitivities were resulted. Today, her blood work is stabilized. Her vital signs have stabilized. The patient has no complaints. She will be discharged home today in stable condition. LABORATORY: WBCs were as high as 12,900. They are now down to 4,400 today. Hemoglobin 11.1 and hematocrit 32.3, stable. Her platelet count on admission was 103 and dropped to 70. It is 83 today. Initially, she had a left shift on her differential and that has normalized. Her blood sugars have run between 79 and 129. Sodium is stable at 140 with potassium 3.6, chloride 111. BUN is 14 with creatinine 0.77. Calcium is slightly low at 8. Initial urine culture came back with no growth after 36 hours, but three of her four blood cultures were positive for E. coli. DISCHARGE PLAN: The patient will be discharged home in stable condition. Since her blood cultures were mostly pansensitive including sensitivity to Augmentin, she will be sent home on 10 days of Augmentin. She will have 14 total days of antibiotic coverage. Blood cultures and urine culture were also re-sent to make sure that her treatment is effective. Her home medications were re-started and I added Align as well as Augmentin. She has a followup appointment with Dr. Berry via phone on 07/18/19 at 10:30 AM. I discussed with the patient that her appointment would be via phone and that Dr. Berry's staff would be calling her at the time of the appointment. She is to return to the hospital or followup with Dr. Berry's office for any problems or complications. It is recommended that she go over her second set of blood cultures and urine cultures at the followup appointment. DISCHARGE MEDICATIONS: 1. Plaquenil. 2. Alendronate. 3. Prednisone. 4. Lisinopril. 5. Gabapentin. 6. Augmentin. 7. Align. #[id number] [facility]
== END 2019-07-12 12:45 | disposition home or self-care (01) | DRG 872 ==
LOC: ER 14:26 → OBSVTOIN 17:49 → MS 17:49
PROVIDERS: ADMIT Nurse Practitioner Family; ATTEND Nurse Practitioner Acute Care
PROC: BW211ZZ Computerized Tomography (CT Scan) of Abdomen and Pelvis using Low Osmolar Contrast (ICD-10-PCS; principal; 2019-07-08)
DX: A41.51 Sepsis due to Escherichia coli [E. coli] (principal); N10 Acute pyelonephritis; E87.1 Hypo-osmolality and hyponatremia; E86.0 Dehydration; M06.9 Rheumatoid arthritis, unspecified; E11.9 Type 2 diabetes mellitus without complications; I10 Essential (primary) hypertension; M32.9 Systemic lupus erythematosus, unspecified; R10.12 Left upper quadrant pain; E87.6 Hypokalemia; E66.9 Obesity, unspecified; Z88.2 Allergy status to sulfonamides; Z88.8 Allergy status to other drugs, medicaments and biological substances; Z79.899 Other long term (current) drug therapy; Z79.52 Long term (current) use of systemic steroids; Z86.14 Personal history of Methicillin resistant Staphylococcus aureus infection; Z68.28 Body mass index [BMI] 28.0-28.9, adult

== ENCOUNTER → 2020-05-21 | Outpatient (CLI) | payer BC ==
--- NOTE | 2020-05-25 10:04 | MAM ---
EXAM DESCRIPTION: 3D Screening BILATERAL : Digital Mammography. CLINICAL HISTORY: 65 years Female screening . No complaints. Female sibling with breast cancer at unknown age. Menarche age 17. Childbirth age 24. Menopause age unknown. No HRT. Lifetime risk of developing breast cancer (Tyrer-Cuzick model)(%): 7.0%. COMPARISON: Bilateral screening digital breast tomosynthesis January 2018 TECHNIQUE: Bilateral CC and MLO projection full-field images, digital tomosynthesis mammographic technique. Bilateral digital 2-D full-field MLO images. CAD available for 2-D images. FINDINGS: The breast parenchymal density pattern is: Heterogeneously dense breast tissue, which may obscure small masses. Asker calcifications. Solitary microcalcifications. Coarse calcifications. Axillary nodes. No skin thickening or nipple retraction No new focal, stellate mass or density, focal asymmetry , and no suspicious microcalcifications bilaterally. Stable mammograms compared to prior study. IMPRESSION: Benign exam. BIRAD CATEGORY: 2 BENIGN FINDINGS. RECOMMENDATIONS: FOLLOW UP: Routine digital bilateral mammographic screening, one year interval from May 2020 Written communication explaining the IMPRESSION and follow-up, will be mailed to the patient and referring health care provider. According to the [employer], yearly mammograms are recommended starting at age 40 and continuing as long as a woman is in good health. Any breast change noted on a breast self-exam should be reported promptly to the patient's healthcare provider. Breast MRI is recommended for women with an approximately 20-25% or greater lifetime risk of breast cancer, including women with a strong family history of breast or ovarian cancer and women who have been treated for Hodgkin's disease. A negative mammographic report should not delay tissue diagnosis in patients with significant clinical history or physical findings. Extremely dense breast tissue limits the sensitivity of digital mammography. Electronically signed by: Rogelio Aguirre MD 05/25/2020 10:03 AM [facility]
== END ==
LOC: GMAE 15:55
PROVIDERS: ATTEND Family Medicine
DX: Z12.31 Encounter for screening mammogram for malignant neoplasm of breast (principal)